=== PATIENT | male | born 1960 | race Caucasian/White ===

== ENCOUNTER 2016-09-28 07:19 | Day surgery (SDC) | payer MEDICAID ==
[2016-09-27 17:22] LABS: HEMOGLOBIN 13.1 g/dL (13.5-17.5); MCH 29.3 pg (26.0-34.0); MCHC 32.8 g/dL (31.0-37.0); MCV 89.5 fL (80.0-100.0); MEAN PLATELET VOLUME 9.5 fL (7.4-10.4); RBC 4.47 10x6/uL (4.20-6.10); RDW 14.2 % (11.5-14.5); WBC 8.7 10x3/uL (4.8-10.8)
[~2016-09-28] VITALS: Ht 175.3 cm; Wt 86.2 kg
[~2016-09-28 07:19] MED LIST: ASPIRIN EC81 M1 PO; BRILINTA90 MG PO; COREG 3.1253.125 MG PO; CRESTOR10 MG PO; CRESTOR5 MG; CYCLOBENZAPRINE10 MG PO; HYDROCODONE-APA1 TAB PO; LIPITOR40 MG PO; MAGNESIUM GLUC500 M1 PO; NEXIUM20 MG PO; VIAGRA100 MG PO; VITAMIN B-1250 MG PO
[2016-09-28 08:10] VITALS: BP 126/74; Ht 175.3 cm; Wt 86.2 kg
--- NOTE | 2016-09-28 11:45 | NUR ---
SCOP PATCH TO RIGHT EAR.
[2016-09-28] MEDS ORDERED: HYDROCODONE-APA1 TAB PO (11:50)
--- NOTE | 2016-09-28 17:33 | NUR ---
1300 IV DC WITH CATHER TIP INTACT,
--- NOTE | 2016-10-04 08:03 | OP ---
PATIENT NAME: LUISANA KELLEY MEDICAL RECORD: [id number] :60 LOCATION:[facility] ADMISSION DATE: SURGEON: JESUS YANEZ MD DATE OF OPERATION: 09/28/2016 PREOPERATIVE DIAGNOSIS: Right knee lateral meniscus tear. 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 PROCEDURES PERFORMED: Partial lateral meniscectomy and chondroplasty. SURGEON: Steven Yanez MD ANESTHESIA: General. CONDITION: He tolerated the procedure well, was transferred to recovery room in stable condition, having tolerated the procedure well. INDICATIONS: This is a pleasant 56-year-old gentleman who has been having knee pain. This has been getting progressively worse. He presents for a meniscus surgery. We discussed risks, benefits and alternatives. He understood and wished to proceed. OPERATIVE REPORT: The patient was taken to the operating room, placed in a supine position. General anesthesia was obtained. His right knee was confirmed to be correct knee. It was prepped and draped in normal fashion. Portal sites were marked and injected with 0.25% Marcaine with epinephrine establishing an anterolateral portal for the scope and inflow, superior medial for the outflow. I proceeded to check the joint, the patellofemoral joint showed significant chondromalacia with exposed bone in the trochlea. Dropping down the medial gutter, his medial joint overall looked very good. I established an anterior medial portal under direct visualization and probed the medial meniscus as well as the medial femoral condyle and medial tibial plateau. I did not see any significant lesions in these areas. I therefore proceeded to the notch where the ACL showed a partial tear. He did have what looked like a partial ACL tear, but not complete. I moved to the [id number] position, he did have a small radial tear in his lateral meniscus, I debrided this. I then checked further, I did not find anything else, I therefore brought the case to a close. He was awakened and transferred to the recovery room in stable condition, having closure with 3-0 Prolene. We will see him back in the office in about 2 weeks. TRANSINT:[id number] Voice Confirmation ID: [id number] DOCUMENT ID: [id number] JESUS YANEZ MD at 0803 CC: [id number] DICTATION DATE: 09/28/16 1154 [facility] [employer] BRUSHER: 09/28/16 1401 [facility] 09/28/16 [place] [id number] [place] [id number]
== END 2016-09-28 14:00 | disposition home or self-care (01) ==
LOC: D.OPS 07:19 → D.PAN 09:15 → D.OPS 11:00 → D.PAN 11:35 → D.OPS 14:00 → D.PAN 10-05 07:00
PROVIDERS: Anesthesiology
DX: S83.281A Other tear of lateral meniscus, current injury, right knee, initial encounter (principal); M94.261 Chondromalacia, right knee; S83.511A Sprain of anterior cruciate ligament of right knee, initial encounter

== ENCOUNTER → 2017-01-07 15:45 | Outpatient (CLI) | payer MEDICAID ==
[2016-09-28 08:10] VITALS: BMI 28.1
== END | disposition home or self-care (01) ==
LOC: D.MRI 15:45
DX: M25.571 Pain in right ankle and joints of right foot (principal)

== ENCOUNTER 2017-10-11 05:18 | Day surgery (SDC) | payer MEDICAID ==
[2017-10-10 09:53] LABS: HEMATOCRIT 41.9 % (42.0-54.0); HEMOGLOBIN 13.7 g/dL (13.5-17.5); MCH 29.1 pg (26.0-34.0); MCHC 32.7 g/dL (31.0-37.0); MCV 89.1 fL (80.0-100.0); MEAN PLATELET VOLUME 9.5 fL (7.4-10.4); RBC 4.7 10x6/uL (4.20-6.10); RDW 14.2 % (11.5-14.5); WBC 9.8 10x3/uL (4.8-10.8)
[2017-10-10 10:06] LABS: APTT 27.1 SECONDS (22.8-39.4); INR 1.02 (0.85-1.17)
[~2017-10-11] VITALS: Ht 175.3 cm; Wt 88.6 kg
--- NOTE | ~2017-10-11 | OP ---
PATIENT NAME: LUISAAN ELLISON MEDICAL RECORD: [id number] :60 LOCATION:[facility] ADMISSION DATE: SURGEON: LUISANA PEÑA, DATE OF OPERATION: 10/11/2017 PROCEDURE PERFORMED: Right olecranon bursectomy. PREOPERATIVE DIAGNOSIS: Right olecranon bursitis. POSTOPERATIVE DIAGNOSIS: Right olecranon bursitis. INDICATIONS: Mr. Ellison is a 57-year-old male who has had right olecranon bursitis for quite some time. He has been dealing with it and even had aspirated a few times and it keeps coming back. He wants something done for treatment. X-rays were taken in my office as well did show a small spur on the olecranon process. Once this done, he was informed of the risks and benefits of the procedure including possible damage to the ulnar nerve in the proximity of it at the elbow. He is in agreement with the procedure. Tourniquet was up for 38 minutes. COMPLICATIONS: None. ESTIMATED BLOOD LOSS: Approximately 25 mL. DESCRIPTION OF PROCEDURE: The patient was taken to the operative suite, laid in supine position, given general anesthetic and Ancef preoperatively. Once this was done, the right upper extremity was prepped and draped in sterile fashion with a tourniquet above as high as we could go under the drapes. After the timeout was performed, the incision was marked out. The right arm was draped across the body. Incision marked out in the midline, slightly deviated radially to avoid incision directly over the olecranon process. The right upper extremity was then exsanguinated with an Ant wrap and then tourniquet was inflated. Once the tourniquet was inflated, incision began and careful dissection down to the bursa itself. The bursa was being off and ruptured off the skin and off the ulna. We then removed it. There were small bead like looking blue in color items in his elbow, which were removed along with the bursal sac. This was carefully dissected off and appeared to be no injury to any vessel or nerve. Tourniquet was then let down and then the elbow was carefully coagulated. Irrigation was done. Once the tourniquet was let down, there was a spur on the olecranon process. It was removed with a rongeur and rasp to smooth it out and then the tricep had been incised. A very small ofelia in the triceps was closed with 0 Vicryl. Then, the skin was closed with a 3-0 Vicryl in an inverted interrupted fashion and 4-0 nylon was ran on the skin for skin closure. The incision was then dressed with Adaptic, 4 x 4s, ABD and wrapped with Kerlix and then Coban over the Kerlix lightly placed. He was awakened and taken to the recovery room in stable condition. TRANSINT:[id number] Voice Confirmation ID: [id number] DOCUMENT ID: [id number] OPERATIVE REPORT [id number] LUISANA ELLISON MICHAEL D, DO at 1801 CC: [id number] DICTATION DATE: 10/11/17 1311 [facility] DEVELOPER: 10/11/17 1436 [facility] 10/11/17 [place] [id number] [place] [address]
[~2017-10-11 05:18] MED LIST changes: +PROTONIX20 MG
[2017-10-11 10:18] VITALS: BP 124/60; BMI 28.8
[2017-10-11 10:22] VITALS: BP 124/60; Ht 175.3 cm; Wt 88.6 kg
[2017-10-11] MEDS ORDERED: DURICEF500 MG PO (13:05)
[2017-10-11] MEDS ORDERED: PERCOCET 5-3251 TAB PO (13:06)
== END 2017-10-11 14:45 | disposition home or self-care (01) ==
LOC: D.OPS 05:18 → D.PAN 11:45 → D.OPS 12:00
PROVIDERS: Anesthesiology
DX: M70.21 Olecranon bursitis, right elbow (principal); I25.10 Atherosclerotic heart disease of native coronary artery without angina pectoris; I10 Essential (primary) hypertension; K21.9 Gastro-esophageal reflux disease without esophagitis; Z95.5 Presence of coronary angioplasty implant and graft; M70.62 Trochanteric bursitis, left hip; M16.12 Unilateral primary osteoarthritis, left hip; Z01.812 Encounter for preprocedural laboratory examination

== ENCOUNTER → 2018-09-22 10:13 | Outpatient (CLI) | payer MEDICAID ==
[2017-10-11 10:22] VITALS: BMI 28.8
[~2018-09-22 10:13] MED LIST changes: +DURICEF500 MG PO; +PERCOCET 5-3251 TAB PO
== END | disposition home or self-care (01) ==
LOC: D.MRI 10:00
DX: M77.11 Lateral epicondylitis, right elbow (principal)